=== PATIENT | female | born 1975 | race Two or more races ===

== ENCOUNTER 2018-11-22 15:24 | Emergency (ER) | payer MEDICAID ==
[2018-11-22] MEDS: KETOROLAC 60 MG INJ IM (16:37)
== END 2018-11-22 16:58 | disposition home or self-care (01) ==
LOC: FTE 15:24
DX: M79.602 Pain in left arm (principal); R20.2 Paresthesia of skin
CPT/HCPCS: 81025; 82962; 96372; 99284-25